=== PATIENT | male | born 1945 | race Caucasian/White ===

== ENCOUNTER 2020-06-10 12:03 | Emergency (ER) | payer OTHER ==
[~2020-06-10] VITALS: Ht 167.6 cm; Wt 73.0 kg
[~2020-06-10 12:03] MED LIST: GLIM2TAB PO; METF1TAB34 PO; METF500T PO; SIMV20TA1 PO; VAS2.5 PO
[2020-06-10] MEDS ORDERED: NACL 0.9% 1,000 ML IV ONE (12:05)
[2020-06-10] MEDS ORDERED: cefTRIAXone 1,000 MG in DEXT 5% MINI-BAG PLUS 50 ML IV ONE (12:05)
[2020-06-10 12:06] VITALS: BP 134/86
--- NOTE | 2020-06-10 12:06 | NUR ---
74 y/o male from home c/o dizziness and nausea since last night. Per pts family pt was confused and dizzy upon coming home this morning. Family member states blood sugar was 500 prior to arrival. Denies vomiting/diarrhea. Skin warm, dry, intact. Ambulatory upon arrival. VSS medhx: DM
--- NOTE | 2020-06-10 12:07 | NUR ---
PATIENT WHEELCHAIRED TO ER BED 02
--- NOTE | 2020-06-10 12:21 | NUR ---
20G IV placed to left forearm, labs and cultures drawn at this time
--- NOTE | 2020-06-10 12:23 | NUR ---
X-Ray at bedside.
[2020-06-10 12:31] LABS: BASOPHILS % (AUTO) 0.3 % (0.0-2.0); EOSINOPHILS % (AUTO) 0.1 % (0.0-4.0); HEMATOCRIT 41.8 % (36-52); HEMOGLOBIN 14.2 g/dL (12.0-18.0); LYMPHOCYTES # (AUTO) 1.3 K/uL (2.0-11.5); LYMPHOCYTES % (AUTO) 18.5 % (20.5-51.1); MEAN CORPUSCULAR HEMOGLOBIN 29 pg (27-31); MEAN CORPUSCULAR HGB CONC 34 g/dL (33-37); MEAN CORPUSCULAR VOLUME 86.8 fL (80-94); MONOCYTES # (AUTO) 0.4 K/uL (0.8-1.0); MONOCYTES % (AUTO) 5.2 % (1.7-9.3); NEUTROPHILS # (AUTO) 5.3 K/uL (1.8-7.7); NEUTROPHILS % (AUTO) 75.9 % (42.2-75.2); PLATELET COUNT (AUTO) 169 K/uL (140-450); RED BLOOD CELL COUNT(AUTO) 4.82 MIL/uL (4.20-6.10); RED CELL DISTRIBUTION WIDTH 14.1 % (11.6-13.7)
[2020-06-10] MEDS ORDERED: cefTRIAXone 1,000 MG VIAL ONE (12:40)
[2020-06-10 12:42] LABS: APPEARANCE,URINE CLEAR (CLEAR); BILIRUBIN,URINE NEGATIVE (NEGATIVE); BLOOD, URINE NEGATIVE (NEGATIVE); COLOR,URINE YELLOW (YELLOW); LEUKOCYTE ESTERASE ,URINE NEGATIVE (NEGATIVE); NITRITE, URINE NEGATIVE (NEGATIVE); PH,URINE 5.5 (5.0-9.0); UGLUCOSE 3+ (NEGATIVE)
--- NOTE | 2020-06-10 12:50 | NUR ---
Covid swab collected and walked to lab.
[2020-06-10 13:05] LABS: ALBUMIN 4.1 g/dL (3.4-5.0); ANION GAP 13.3 (8-16); ASPARTATE AMINOTRANSFERASE 17 U/L (15-37); CARBON DIOXIDE 26.7 mmol/L (21-32); CHLORIDE 99 mmol/L (98-107); CREATININE 0.9 mg/dL (0.6-1.3); GLUCOSE 341 mg/dL (74-106); SODIUM SERUM 135 mmol/L (136-145); TOTAL BILIRUBIN 0.7 mg/dL (0.0-1.0); UREA NITROGEN, BLOOD 16 mg/dL (7-18)
--- NOTE | 2020-06-10 14:05 | NUR ---
IV d/c 2x2 gauze placed to iv site. Bleeding controlled
--- NOTE | 2020-06-10 14:12 | NUR ---
Patient discharged with v/s stable. Written and verbal after care instructions given and explained. Patient alert, oriented and verbalized understanding of instructions. Ambulatory with steady gait. All questions addressed prior to discharge. ID band removed. Patient advised to follow up with PMD. Rx of Meclizine 25mg given. Patient educated on indication of medication including possible reaction and side effects. Opportunity to ask questions provided and answered.
[2020-06-10 14:13] VITALS: BP 131/84
--- NOTE | 2020-06-13 06:01 | NUR ---
LATE ENTRY---- NS BOLUS DISCONTINUED AT 1315
== END 2020-06-10 14:12 | disposition home or self-care (01) ==
LOC: MED 12:03
DX: R42 Dizziness and giddiness (principal); E11.9 Type 2 diabetes mellitus without complications; I10 Essential (primary) hypertension; J45.909 Unspecified asthma, uncomplicated; Z79.899 Other long term (current) drug therapy
CPT/HCPCS: 36415; 71045; 80053; 81003; 83605; 83880; 84484; 85025; 87040; 87086; 87426; 93005; 96365; 99285; J0696; J7030

== ENCOUNTER 2020-07-17 19:09 | Emergency (ER) | payer OTHER ==
[~2020-07-17] VITALS: Ht 167.6 cm; Wt 86.2 kg
[2020-07-17 20:13] VITALS: BP 140/67
[2020-07-17] MEDS ORDERED: HYDROcodone/APAP 5/325 MG 1 TAB TAB PO ONE (20:35)
--- NOTE | 2020-07-17 21:00 | NUR ---
DAUGHTERLANEY--- [phone]. CALL FOR PICKUP AND UPDATES
--- NOTE | 2020-07-17 22:29 | NUR ---
Patient discharged with v/s stable. Written and verbal after care instructions given and explained. Patient alert, oriented and verbalized understanding of instructions. Ambulatory with steady gait. All questions addressed prior to discharge. ID band removed. Patient advised to follow up with PMD. Rx of IBUPROFEN AND NORCO given. Patient educated on indication of medication including possible reaction and side effects. Opportunity to ask questions provided and answered.
[2020-07-17 22:48] VITALS: BP 140/67
== END 2020-07-17 22:29 | disposition home or self-care (01) ==
LOC: MED 19:09
DX: M25.512 Pain in left shoulder (principal); M25.552 Pain in left hip; E11.9 Type 2 diabetes mellitus without complications; J45.909 Unspecified asthma, uncomplicated; I10 Essential (primary) hypertension; W19.XXXA Unspecified fall, initial encounter; Y93.89 Activity, other specified; Y92.89 Other specified places as the place of occurrence of the external cause; Y99.8 Other external cause status
CPT/HCPCS: 73030; 73502; 99284